=== PATIENT | male | born 1955 | race Caucasian/White ===

== ENCOUNTER 2018-09-18 13:17 | Emergency (ER) | payer OTHER ==
[~2018-09-18] VITALS: Ht 180.3 cm; Wt 131.0 kg
[2018-09-18] MEDS ORDERED: acetaminophen 325mg tablet PO ONE (13:30)
--- NOTE | 2018-09-18 13:47 | NUR ---
PT BACK FROM CT
[2018-09-18] MEDS ORDERED: AMOX-422 PO (14:00)
[2018-09-18] MEDS ORDERED: ALBU8HFA PO (14:04)
[2018-09-18] MEDS ORDERED: PRED20TA PO (14:04)
[2018-09-18] MEDS ORDERED: dexamethasone sod phosphate 10mg/ml inj IV STA (14:15)
[2018-09-18] MEDS ORDERED: SUMAtriptan succ. 6 MG/0.5ml vial SQ ONE (14:15)
[2018-09-18] MEDS ORDERED: ketorolac tromethamine 15mg/ml inj. IV ONE (14:15)
[2018-09-18] MEDS ORDERED: proCHLORperazine 10 MG/2 ml inj IV ONE (14:15)
[2018-09-18] MEDS ORDERED: normal saline 1000ML IV soln IVB ONE (14:15)
[2018-09-18] MEDS ORDERED: HYDR-3965 PO (15:16)
[2018-09-18] MEDS ORDERED: ONDA4TAB6 PO (15:16)
[2018-09-18 16:37] VITALS: BP 151/66
== END 2018-09-18 16:58 | disposition home or self-care (01) ==
LOC: ER 13:18
DX: G44.89 Other headache syndrome (principal); J20.9 Acute bronchitis, unspecified; J01.40 Acute pansinusitis, unspecified
CPT/HCPCS: 70450; 96372; 96374; 96375; 99284; J0780; J1100; J1885; J7030; J3030